=== PATIENT | male | born 1965 | race African-American/Black ===

== ENCOUNTER 2017-03-26 17:11 | Inpatient (IN) | payer MEDICAID ==
[~2017-03-26] VITALS: Ht 165.1 cm; Wt 79.4 kg
[~2017-03-26 17:11] MED LIST: CYCL10TA7 PO; NAPR-681 PO
[2017-03-26] MEDS ORDERED: SODIUM CHLORIDE 0.9% 1,000 ML IV ONE (17:59)
[2017-03-26 18:44] LABS: HEMATOCRIT. 30.5 % (42.0-52.0); HEMOGLOBIN. 9.9 g/dL (14.0-18.0); MEAN CORPUSCULAR HEMOGLOBIN 25.3 pg (28.0-32.0); MEAN CORPUSCULAR VOLUME 78.3 fL (80.0-94.0); MEAN PLATELET VOLUME 8.3 fl (7.4-10.4); PLATELET 79 x1000/uL (130-400); RED CELL DISTRIBUTION WIDTH 29.9 % (11.6-14.6)
[2017-03-26] MEDS ORDERED: LORAZEPAM 2MG/ML CPJ IV ONE (18:45)
[2017-03-26 18:47] LABS: INR 1.3; PROTHROMBIN TIME 13.4 sec (9.4-11.6)
[2017-03-26 18:56] LABS: CHLORIDE 108 mEq/L (98-107); ETHANOL BLOOD < 10 mg/dL; TROPONIN I < 0.02 ng/mL (0.00-0.04)
[2017-03-26] MEDS ORDERED: LEVOFLOXACIN 750MG PREMIX 150 ML IV ONE (19:00)
[2017-03-26] MEDS ORDERED: VANCOMYCIN 1 G PREMIX 200 ML IV ONE (19:00)
[2017-03-26] MEDS ORDERED: ACETAMINOPHEN 650MG SUPP PR STA (19:00)
[2017-03-26] MEDS ORDERED: SODIUM CHLORIDE 0.9% 1000ML BAG (SEPSIS BOLUS) IV ONE (19:00)
[2017-03-26 19:02] LABS: *AMPHETAMINES SCREEN URINE NEGATIVE (NEGATIVE); *BARBITURATES SCREEN URINE NEGATIVE (NEGATIVE); *BENZODIAZEPINES SCREEN URINE NEGATIVE (NEGATIVE); *COCAINE SCREEN URINE NEGATIVE (NEGATIVE); CANNABINOID URINE SCREEN NEGATIVE (NEGATIVE); METHADONE URINE SCREEN NEGATIVE (NEGATIVE); OPIATES URINE SCREEN NEGATIVE (NEGATIVE); PHENCYCLIDINE URINE SCREEN NEGATIVE (NEGATIVE)
[2017-03-26 19:41] LABS: PLATELET ESTIMATE MARKEDLY DECREASED
[2017-03-26 20:24] LABS: CLARITY URINE CLOUDY (CLEAR); COLOR URINE DARK YELLOW (YELLOW); KETONES URINE 1+ (NEGATIVE); LEUKOCYTE ESTERASE URINE TRACE (NEGATIVE); NITRITE URINE NEGATIVE (NEGATIVE); OCCULT BLOOD URINE NEGATIVE (NEGATIVE); PH URINE 5.5 (4.5-8.0); PROTEIN URINE 1+ (NEGATIVE); SPECIFIC GRAVITY URINE 1.026 (1.005-1.030)
[2017-03-26 23:30] VITALS: BP 111/70
[2017-03-27] MEDS ORDERED: MORPHINE SULFATE 4 MG/ML CPJ (NOT FOR IM USE) IV PRN (03:30)
[2017-03-27] MEDS ORDERED: LORAZEPAM 2MG/ML CPJ IM PRN (03:30)
[2017-03-27 04:00] VITALS: BP 123/72
[2017-03-27] MEDS ORDERED: VANCOMYCIN 1 G PREMIX 200 ML IV SCH (06:00)
[2017-03-27] MEDS ORDERED: PIPERACILLIN/TAZOBACTAM 3.375GM/50ML PREMIX IV SCH (06:00)
[2017-03-27 09:11] VITALS: BP 124/88
[2017-03-27 11:02] VITALS: BP 150/94
[2017-03-27 11:04] VITALS: BP 135/93
[2017-03-27] MEDS ORDERED: IPRATROPIUM/ALBUTEROL 0.5-3(2.5)MG/3ML NEB HHN PRN ×2 (12:15)
[2017-03-27 13:47] LABS: AMMONIA 28 uMol/L (<32)
[2017-03-27 14:17] LABS: FOLIC ACID (FOLATE) SERUM 16.1 ng/mL (>5.38)
[2017-03-27] MEDS: DEXT 5%/0.45% NACL 1000ML 1,000 ML IV SCH (16:13)
[2017-03-27 20:12] VITALS: BP 147/101
[2017-03-27] MEDS: RISPERIDONE 0.5MG TABLET PO SCH ×2 (21:00→22:01)
[2017-03-27] MEDS: LEVOFLOXACIN 500MG PREMIX 100 ML IV SCH (22:00)
[2017-03-28] VITALS: BP 129/88
[2017-03-28] MEDS: DEXT 5%/0.45% NACL 1000ML 1,000 ML IV SCH ×2 (03:34→17:17)
[2017-03-28 04:00] VITALS: BP 128/68
[2017-03-28 08:24] LABS: HEMATOCRIT. 30.5 % (42.0-52.0); HEMOGLOBIN. 9.7 g/dL (14.0-18.0); MEAN CORPUSCULAR HEMOGLOBIN 25.2 pg (28.0-32.0); MEAN CORPUSCULAR VOLUME 79.4 fL (80.0-94.0); MEAN PLATELET VOLUME 8.3 fl (7.4-10.4); PLATELET 79 x1000/uL (130-400); RED BLOOD CELL COUNT 3.84 mill/uL (4.7-6.1); RED CELL DISTRIBUTION WIDTH 29.6 % (11.6-14.6)
[2017-03-28] MEDS: RISPERIDONE 0.5MG TABLET PO SCH ×2 (09:00→21:28)
[2017-03-28 10:07] LABS: T4 FREE 1.23 ng/dL (0.76-1.46)
[2017-03-28 12:00] VITALS: BP 126/82
[2017-03-28 12:29] LABS: CHLORIDE 111 mEq/L (98-107)
[2017-03-28 16:00] VITALS: BP 128/86
[2017-03-28 20:19] LABS: PLATELET ESTIMATE DECREASED
[2017-03-28 20:35] VITALS: BP 132/99
[2017-03-28] MEDS: LEVOFLOXACIN 500MG PREMIX 100 ML IV SCH (22:17)
[2017-03-29] VITALS: BP 133/95
[2017-03-29 00:28] LABS: AMMONIA 32 uMol/L (<32)
[2017-03-29] MEDS: LORAZEPAM 2MG/ML CPJ IM PRN (02:33)
[2017-03-29 04:00] VITALS: BP 128/92
[2017-03-29] MEDS: DEXT 5%/0.45% NACL 1000ML 1,000 ML IV SCH ×2 (04:51→17:41)
[2017-03-29] MEDS: RISPERIDONE 0.5MG TABLET PO SCH ×2 (09:00→22:55)
[2017-03-29 12:00] VITALS: BP 129/70
[2017-03-29 17:09] VITALS: BP 146/75
[2017-03-29] MEDS ORDERED: VANCOMYCIN 1500MG in DEXTROSE 5% WATER 250ML IV SCH (18:00)
[2017-03-29 20:12] VITALS: BP 157/93
[2017-03-29] MEDS: AZTREONAM 1 G in DEXTROSE 5% WATER 50 ML IV SCH (20:55)
[2017-03-30] VITALS: BP 96/61
[2017-03-30] MEDS: VANCOMYCIN 1 G PREMIX 200 ML IV SCH ×3 (02:45→17:53)
[2017-03-30 04:00] VITALS: BP 123/98
[2017-03-30] MEDS: DEXT 5%/0.45% NACL 1000ML 1,000 ML IV SCH ×3 (05:40→20:51)
[2017-03-30] MEDS: AZTREONAM 1 G in DEXTROSE 5% WATER 50 ML IV SCH ×3 (05:40→20:51)
[2017-03-30 07:00] LABS: HEMATOCRIT. 30.8 % (42.0-52.0); HEMOGLOBIN. 10.2 g/dL (14.0-18.0); MEAN CORPUSCULAR HEMOGLOBIN 26.2 pg (28.0-32.0); MEAN CORPUSCULAR VOLUME 79.4 fL (80.0-94.0); MEAN PLATELET VOLUME 8.3 fl (7.4-10.4); PLATELET 78 x1000/uL (130-400); RED BLOOD CELL COUNT 3.88 mill/uL (4.7-6.1); RED CELL DISTRIBUTION WIDTH 28.9 % (11.6-14.6)
[2017-03-30 08:14] LABS: CHLORIDE 108 mEq/L (98-107)
[2017-03-30 08:30] VITALS: BP 132/81
[2017-03-30] MEDS: RISPERIDONE 0.5MG TABLET PO SCH ×2 (09:39→20:51)
[2017-03-30 12:23] VITALS: BP 97/77
[2017-03-30] MEDS ORDERED: POTASSIUM CHLORIDE 20MEQ TABLET SR PO NR (12:45)
[2017-03-30 16:36] VITALS: BP 131/72
[2017-03-30 20:00] VITALS: BP 146/83
[2017-03-30 20:33] LABS: PLATELET ESTIMATE DECREASED
[2017-03-30] MEDS: QUETIAPINE FUMARATE 25MG TABLET PO SCH (20:51)
[2017-03-31] VITALS: BP 154/102
[2017-03-31] MEDS: LORAZEPAM 2MG/ML CPJ IM PRN ×2 (00:44→16:15)
[2017-03-31] MEDS: VANCOMYCIN 1 G PREMIX 200 ML IV SCH (02:56)
[2017-03-31 04:00] VITALS: BP 127/71
[2017-03-31] MEDS: AZTREONAM 1 G in DEXTROSE 5% WATER 50 ML IV SCH ×3 (04:48→20:12)
[2017-03-31 07:35] LABS: CHLORIDE 107 mEq/L (98-107)
[2017-03-31 07:43] LABS: INR 1.4; PARTIAL THROMBOPLASTIN TIME 36.4 sec (23.4-31.0); PROTHROMBIN TIME 14.6 sec (9.4-11.6)
[2017-03-31 08:02] VITALS: BP 112/71
[2017-03-31] MEDS: RISPERIDONE 0.5MG TABLET PO SCH ×2 (09:00→20:12)
[2017-03-31] MEDS: QUETIAPINE FUMARATE 25MG TABLET PO SCH ×2 (09:00→20:12)
[2017-03-31] MEDS: VANCOMYCIN 1250MG in DEXTROSE 5% WATER 250ML IV SCH ×2 (10:31→18:26)
[2017-03-31] MEDS: DEXT 5%/0.45% NACL 1000ML 1,000 ML IV SCH ×2 (10:31→19:00)
[2017-03-31 12:00] VITALS: BP 115/69
[2017-03-31] MEDS ORDERED: POTASSIUM CHLORIDE INJ 40 MEQ in DEXT 5% WATER 250 ML IV NR (12:00)
[2017-03-31 16:13] VITALS: BP 102/69
[2017-03-31 19:55] VITALS: BP 103/72
[2017-03-31] MEDS: ACETAMINOPHEN 325MG TABLET PO PRN (22:11)
[2017-03-31] MEDS ORDERED: IBUPROFEN 400MG TABLET PO PRN (23:45)
[2017-04-01 00:04] VITALS: BP 104/61
[2017-04-01] MEDS: AZTREONAM 1 G in DEXTROSE 5% WATER 50 ML IV SCH ×3 (03:48→20:19)
[2017-04-01] MEDS: DEXT 5%/0.45% NACL 1000ML 1,000 ML IV SCH (03:58)
[2017-04-01 04:00] VITALS: BP 113/74
[2017-04-01 08:00] VITALS: BP 110/61
[2017-04-01] MEDS: QUETIAPINE FUMARATE 25MG TABLET PO SCH ×2 (08:40→20:20)
[2017-04-01] MEDS: RISPERIDONE 0.5MG TABLET PO SCH ×2 (08:40→20:20)
[2017-04-01 12:00] VITALS: BP 118/66
[2017-04-01] MEDS ORDERED: PANTOPRAZOLE SODIUM 40 MG/VIAL IV SCH (12:30)
[2017-04-01 13:29] LABS: INR 1.3
[2017-04-01] MEDS: DEXT 5%/0.45% NACL KCL 40MEQ/L 1,000 ML IV SCH (15:19)
[2017-04-01 16:00] VITALS: BP 112/62
[2017-04-01 20:00] VITALS: BP 119/70
[2017-04-01] MEDS: ACETAMINOPHEN 325MG TABLET PO PRN (20:19)
[2017-04-02] VITALS: BP 122/70
[2017-04-02] MEDS: AZTREONAM 1 G in DEXTROSE 5% WATER 50 ML IV SCH ×3 (03:15→21:27)
[2017-04-02 04:00] VITALS: BP 104/69
[2017-04-02] MEDS: ACETAMINOPHEN 325MG TABLET PO PRN ×3 (04:16→21:28)
[2017-04-02] MEDS: PANTOPRAZOLE 40MG DR TABLET PO SCH (06:16)
[2017-04-02 07:36] LABS: HEMATOCRIT. 27.2 % (42.0-52.0); HEMOGLOBIN. 8.7 g/dL (14.0-18.0); MEAN CORPUSCULAR HEMOGLOBIN 25.5 pg (28.0-32.0); MEAN CORPUSCULAR VOLUME 79.3 fL (80.0-94.0); MEAN PLATELET VOLUME 8.5 fl (7.4-10.4); PLATELET 77 x1000/uL (130-400); RED BLOOD CELL COUNT 3.43 mill/uL (4.7-6.1); RED CELL DISTRIBUTION WIDTH 27.9 % (11.6-14.6)
[2017-04-02 08:00] VITALS: BP 107/65
[2017-04-02 08:26] LABS: CHLORIDE 108 mEq/L (98-107)
[2017-04-02] MEDS: QUETIAPINE FUMARATE 25MG TABLET PO SCH ×2 (08:30→21:28)
[2017-04-02] MEDS: RISPERIDONE 0.5MG TABLET PO SCH ×2 (08:30→21:27)
[2017-04-02 08:38] LABS: PLATELET ESTIMATE DECREASED
[2017-04-02 10:44] LABS: HEPATITIS B SURFACE ANTIGEN NEGATIVE
[2017-04-02 11:12] LABS: HEPATITIS B CORE AB IGM NEGATIVE
[2017-04-02 11:13] LABS: HEPATITIS A AB IGM NEGATIVE (NEGATIVE)
[2017-04-02 11:24] LABS: TOTAL IRON BINDING CAPACITY 162 ug/dL (250-450)
[2017-04-02 12:00] VITALS: BP 104/57
[2017-04-02 13:04] LABS: CHLORIDE 107 mEq/L (98-107)
[2017-04-02] MEDS: DEXT 5%/0.45% NACL KCL 40MEQ/L 1,000 ML IV SCH (13:10)
[2017-04-02 16:00] VITALS: BP 113/68
[2017-04-02 20:00] VITALS: BP 133/79
[2017-04-03 00:25] VITALS: BP 122/68
[2017-04-03] MEDS: AZTREONAM 1 G in DEXTROSE 5% WATER 50 ML IV SCH (03:18)
[2017-04-03 04:00] VITALS: BP 107/63
[2017-04-03] MEDS: ACETAMINOPHEN 325MG TABLET PO PRN (05:47)
[2017-04-03] MEDS: PANTOPRAZOLE 40MG DR TABLET PO SCH (05:47)
[2017-04-03 07:07] LABS: HEMATOCRIT 26.7 % (42.0-52.0); HEMOGLOBIN 8.9 g/dL (14.0-18.0); MEAN CORPUSCULAR HEMOGLOBIN 26.4 pg (28.0-32.0); MEAN CORPUSCULAR VOLUME 79.4 fL (80.0-94.0); PLATELET 86 x1000/uL (130-400); RED BLOOD CELL COUNT 3.36 mill/uL (4.7-6.1); RED CELL DISTRIBUTION WIDTH 28.1 % (11.6-14.6)
[2017-04-03 08:00] VITALS: BP 130/75
[2017-04-03] MEDS: QUETIAPINE FUMARATE 25MG TABLET PO SCH ×2 (08:19→21:28)
[2017-04-03] MEDS: RISPERIDONE 0.5MG TABLET PO SCH ×2 (08:19→21:28)
[2017-04-03 12:00] VITALS: BP 111/71
[2017-04-03 16:00] VITALS: BP 146/79
[2017-04-03] MEDS: DEXT 5%/0.45% NACL KCL 40MEQ/L 1,000 ML IV SCH (16:27)
[2017-04-03 19:52] VITALS: BP 137/84
[2017-04-04 00:29] VITALS: BP 120/70
[2017-04-04 04:37] VITALS: BP 114/75
[2017-04-04] MEDS: PANTOPRAZOLE 40MG DR TABLET PO SCH (06:34)
[2017-04-04 06:44] LABS: HEMOGLOBIN. 8.7 g/dL (14.0-18.0); MEAN CORPUSCULAR HEMOGLOBIN 26.3 pg (28.0-32.0); MEAN CORPUSCULAR VOLUME 78.8 fL (80.0-94.0); MEAN PLATELET VOLUME 8.5 fl (7.4-10.4); PLATELET 96 x1000/uL (130-400); RED BLOOD CELL COUNT 3.31 mill/uL (4.7-6.1); RED CELL DISTRIBUTION WIDTH 28.1 % (11.6-14.6)
[2017-04-04 07:08] LABS: CHLORIDE 105 mEq/L (98-107)
[2017-04-04 07:57] VITALS: BP 121/79
[2017-04-04] MEDS: QUETIAPINE FUMARATE 25MG TABLET PO SCH ×2 (09:12→20:58)
[2017-04-04] MEDS: RISPERIDONE 0.5MG TABLET PO SCH ×2 (09:12→20:58)
[2017-04-04 12:00] VITALS: BP 115/70
[2017-04-04 13:39] LABS: PLATELET ESTIMATE DECREASED
[2017-04-04] MEDS: DEXT 5%/0.45% NACL KCL 40MEQ/L 1,000 ML IV SCH (14:37)
[2017-04-04 16:09] VITALS: BP 118/82
[2017-04-04 20:00] VITALS: BP 129/87
[2017-04-04] MEDS: ACETAMINOPHEN 325MG TABLET PO PRN (20:58)
[2017-04-05] VITALS: BP 123/79
[2017-04-05 04:00] VITALS: BP 124/84
[2017-04-05 07:02] LABS: HEMATOCRIT. 27.1 % (42.0-52.0); MEAN CORPUSCULAR HEMOGLOBIN 26.2 pg (28.0-32.0); MEAN PLATELET VOLUME 8.5 fl (7.4-10.4); PLATELET 115 x1000/uL (130-400); RED BLOOD CELL COUNT 3.43 mill/uL (4.7-6.1); RED CELL DISTRIBUTION WIDTH 27.8 % (11.6-14.6)
[2017-04-05] MEDS: PANTOPRAZOLE 40MG DR TABLET PO SCH (07:25)
[2017-04-05 07:51] LABS: CHLORIDE 107 mEq/L (98-107)
[2017-04-05 08:00] VITALS: BP 127/88
[2017-04-05] MEDS: RISPERIDONE 0.5MG TABLET PO SCH ×2 (09:22→22:11)
[2017-04-05] MEDS: QUETIAPINE FUMARATE 25MG TABLET PO SCH ×2 (09:22→22:11)
[2017-04-05 10:35] LABS: PLATELET ESTIMATE SLIGHTLY DECREASED
[2017-04-05 12:00] VITALS: BP 130/84
[2017-04-05 16:00] VITALS: BP 104/83
[2017-04-05] MEDS: DEXT 5%/0.45% NACL KCL 40MEQ/L 1,000 ML IV SCH (16:50)
[2017-04-05 19:27] VITALS: BP 123/78
[2017-04-06] VITALS: BP 115/75
[2017-04-06 04:00] VITALS: BP 122/83
[2017-04-06] MEDS: ACETAMINOPHEN 325MG TABLET PO PRN ×3 (04:50→21:48)
[2017-04-06] MEDS: PANTOPRAZOLE 40MG DR TABLET PO SCH (06:43)
[2017-04-06 08:00] VITALS: BP 112/69
[2017-04-06] MEDS: QUETIAPINE FUMARATE 25MG TABLET PO SCH ×2 (08:47→21:22)
[2017-04-06] MEDS: RISPERIDONE 0.5MG TABLET PO SCH ×2 (08:47→21:22)
[2017-04-06 12:00] VITALS: BP 114/75
[2017-04-06 16:00] VITALS: BP 109/67
[2017-04-06] MEDS: DEXT 5%/0.45% NACL KCL 40MEQ/L 1,000 ML IV SCH (18:37)
[2017-04-06 20:24] VITALS: BP 126/77
[2017-04-07] VITALS: BP 125/86
[2017-04-07 04:00] VITALS: BP 140/95
[2017-04-07] MEDS: ACETAMINOPHEN 325MG TABLET PO PRN ×2 (06:44→12:19)
[2017-04-07] MEDS: PANTOPRAZOLE 40MG DR TABLET PO SCH (06:44)
[2017-04-07] MEDS: RISPERIDONE 0.5MG TABLET PO SCH ×2 (08:33→20:34)
[2017-04-07] MEDS: QUETIAPINE FUMARATE 25MG TABLET PO SCH ×2 (08:33→20:34)
[2017-04-07 08:45] VITALS: BP 119/74
[2017-04-07 12:50] VITALS: BP 112/74
[2017-04-07 16:43] VITALS: BP 127/63
[2017-04-07 20:00] VITALS: BP 140/93
[2017-04-07] MEDS: DEXT 5%/0.45% NACL KCL 40MEQ/L 1,000 ML IV SCH (20:35)
[2017-04-08] VITALS: BP 132/87
[2017-04-08 04:00] VITALS: BP 137/80
[2017-04-08] MEDS: PANTOPRAZOLE 40MG DR TABLET PO SCH ×2 (06:44→06:47)
[2017-04-08 08:00] VITALS: BP 114/75
[2017-04-08] MEDS: RISPERIDONE 0.5MG TABLET PO SCH ×2 (09:54→20:44)
[2017-04-08] MEDS: QUETIAPINE FUMARATE 25MG TABLET PO SCH ×2 (09:54→20:44)
[2017-04-08 12:00] VITALS: BP_SYST 124; BP_SYST 127; BP_DIAS 68; BP_DIAS 83
[2017-04-08 16:00] VITALS: BP_SYST 128; BP_SYST 138; BP_DIAS 78; BP_DIAS 88
[2017-04-08 20:05] VITALS: BP 142/96
[2017-04-09 00:16] VITALS: BP 142/87
[2017-04-09 04:00] VITALS: BP 138/89
[2017-04-09] MEDS: PANTOPRAZOLE 40MG DR TABLET PO SCH (06:38)
[2017-04-09 08:00] VITALS: BP 145/90
[2017-04-09] MEDS: RISPERIDONE 0.5MG TABLET PO SCH ×2 (09:14→21:38)
[2017-04-09] MEDS: QUETIAPINE FUMARATE 25MG TABLET PO SCH ×2 (09:15→21:38)
[2017-04-09 12:00] VITALS: BP 113/68
[2017-04-09 16:00] VITALS: BP 131/92
[2017-04-09 20:09] VITALS: BP 124/86
[2017-04-09] MEDS: ACETAMINOPHEN 325MG TABLET PO PRN (21:37)
[2017-04-10] VITALS (7 sets, daily range): BP systolic 98–131; BP diastolic 65–92
[2017-04-10] MEDS: RISPERIDONE 0.5MG TABLET PO SCH ×2 (10:06→22:43)
[2017-04-10] MEDS: QUETIAPINE FUMARATE 25MG TABLET PO SCH ×2 (10:06→22:43)
[2017-04-10] MEDS: PANTOPRAZOLE 40MG DR TABLET PO SCH (10:08)
[2017-04-11 04:00] VITALS: BP 134/77
[2017-04-11] MEDS: PANTOPRAZOLE 40MG DR TABLET PO SCH (06:51)
[2017-04-11 08:06] VITALS: BP 136/92
[2017-04-11] MEDS: QUETIAPINE FUMARATE 25MG TABLET PO SCH (08:44)
[2017-04-11] MEDS: RISPERIDONE 0.5MG TABLET PO SCH (08:44)
[2017-04-11] MEDS ORDERED: METOPROLOL TARTRATE 25MG TABLET PO SCH (11:15)
[2017-04-11 12:35] VITALS: BP 96/57
[2017-04-11 13:44] VITALS: BP 96/57
[2017-04-11 14:40] VITALS: BP 94/56
== END 2017-04-11 15:40 | DRG 720 ==
LOC: ER 17:16 → 6WST 21:47 → ENRESERV 22:30
PROVIDERS: ADMIT Internal Medicine; ATTEND Internal Medicine
PROC: 4A00X4Z Measurement of Central Nervous Electrical Activity, External Approach (ICD-10-PCS; principal; 2017-03-28)
DX: A41.9 Sepsis, unspecified organism (principal); J69.0 Pneumonitis due to inhalation of food and vomit; G82.50 Quadriplegia, unspecified; E43 Unspecified severe protein-calorie malnutrition; D61.818 Other pancytopenia; G92 Toxic encephalopathy; E87.2 Acidosis; C85.10 Unspecified B-cell lymphoma, unspecified site; I11.0 Hypertensive heart disease with heart failure; I50.32 Chronic diastolic (congestive) heart failure; C79.51 Secondary malignant neoplasm of bone; N39.0 Urinary tract infection, site not specified; D68.69 Other thrombophilia; D50.9 Iron deficiency anemia, unspecified; R26.9 Unspecified abnormalities of gait and mobility; E66.2 Morbid (severe) obesity with alveolar hypoventilation; C95.90 Leukemia, unspecified not having achieved remission; E87.6 Hypokalemia; R62.7 Adult failure to thrive; Z78.1 Physical restraint status; Z92.3 Personal history of irradiation; Z88.0 Allergy status to penicillin; Z79.899 Other long term (current) drug therapy; Z68.29 Body mass index [BMI] 29.0-29.9, adult
CPT/HCPCS: 36415; 70450; 70551; 71045; 74176; 80048; 80053; 80202; 80305; 81001; 82140; 82270; 82607; 82728; 82746; 83036; 83540; 83550; 83605; 84145; 84439; 84443; 84481; 84484; 85025; 85027; 85379; 85610; 85730; 86592; 86705; 86709; 86803; 87040; 87086; 87186; 87340; 87804; 92610; 93005; 93306; 93970; 96361; 96374; 96375; 97116; 97162; 97530; 99291; A6261; C9113; G0482; J1956; J2060; J2270; J3370; J3480; J3490; J7030; J7060